=== PATIENT | female | born 1990 | race Caucasian/White ===

== ENCOUNTER 2021-04-30 12:25 | Emergency (ER) | payer SELFPAY ==
--- OUTSIDE RECORDS SUMMARY | 2021-04-30 12:30 | XMS REPORT | Continuity of Care Document ---
:1990 Author Organization [facility] Address [address] [place] [address] [address] [place] [address] Care Team Providers Name Role Phone MARILYNN GERBER Attending Clinician Unavailable Bonnie SNOWDEN Attending Clinician Unavailable Christa BLANDON Attending Clinician Unavailable ANNEMARIE Attending Clinician Unavailable My SHARPE Admitting Clinician Unavailable JUAN Admitting Clinician Unavailable Payers Payer Name Policy Type Policy Number Effective Date Expiration Date S ourfatoumata BCBS [facility] - OUT [id number] 2019 [id number] 2018 00:00:00 Problems Condition Condition Condition Status Onset Resolution Last Treating Co mments Source Name Details Category Date Date Treatment Clinician Date Chest wall Chest wall Problem Active [address] [facility] (LUF/LI V/SA) Dehydratio Dehydratio Problem Active [facility] ([facility]/SA) Urinary Urinary Problem Active [facility] infectious infectious Me moria disease disease l (LUF/LI V/SA) Allergies, Adverse Reactions, Alerts Allergy Allergy Status Severity Reaction(s) Onset Inactive Treating Comm ents Source Name Type Date Date Clinician NO KNOWN Drug Active Univers ALLERGIE Class ity of S [facility] Social History Smoking Status Start Date Stop Date Source Current some day smoker [facility] ([facility]SA) Medications This patient has no known medications. Vital Signs Vital Name Observation Time Observation Value Comments Source Body Temperature 2017 14:23:[address] [facility] (LUF/ASHLEY/SA) Respiratory Rate 2017 14:23:00 20 /min [facility] (LUF/ASHLEY/SA) O2% BldC Oximetry 2017 14:23:00 98 % [facility] (LUF/ASHLEY/SA) BP Systolic 2017 14:23:00 154 mm[Hg] DEVANTE Roblero [facility] (LUF/ASHLEY/SA) BP Diastolic 2017 14:23:00 98 mm[Hg] DEVANTE Roblero [facility] (LUF/ASHLEY/SA) Height 2017 14:23:00 67 in [facility] My [facility] (LUF/ASHLEY/SA) Weight Measured 2017 14:23:00 289.02 lbs DEVANTE terry [facility] (LUF/ASHLEY/SA) BMI (Body Mass Index) 2017 14:23:00 45.3 DEVANTE [facility] (LUF/ASHLEY/SA) Body Temperature 2017-09-01 21:52:00 98.9 F [facility] (LUF/ASHLEY/SA) Respiratory Rate 2017-09-01 21:52:00 18 /min [facility] (LUF/ASHLEY/SA) O2% BldC Oximetry 2017-09-01 21:52:00 99 % [facility] (LUF/ASHLEY/SA) BP Systolic 2017-09-01 21:52:00 152 mm[Hg] DEVANTE My [facility] (LUF/ASHLEY/SA) BP Diastolic 2017-09-01 21:52:00 98 mm[Hg] DEVANTE My [facility] (LUF/ASHLEY/SA) Height 2017-09-01 21:52:00 68 in [facility] My [facility] (LUF/ASHLEY/SA) Weight Measured 2017-09-01 21:52:00 291.45 lbs DEVANTE terry [facility] (LUF/ASHLEY/SA) BMI (Body Mass Index) 2017-09-01 21:52:00 44.6 [facility] (LUF/ASHLEY/SA) Procedures This patient has no known procedures. Encounters Start End Encounter Admission Attending Care Care Encounter Source Date/Time Date/Time Type Type Clinicians Facility Department ID 2020-02-02 2020-02-02 Outpatient Roby GERBER [facility] [id number] Univers 15:00:00 15:00:00 ISAIAS [id number] [facility] 2020-02-02 2020-02-02 Outpatient R ZABRINA [facility] [id number] Univers 15:00:00 15:00:00 ISAIAS momin [facility] 2020-01-25 2020-01-25 Outpatient R ZABRINA [facility] [id number] Univers 09:30:00 09:30:00 ISAIAS momin [facility] 2020-01-21 2020-01-21 Outpatient R SP [facility] [id number] [id number] Univers 14:30:00 14:30:00 WONDIFUL [id number] ity o f [facility] 2020-01-21 2020-01-21 Outpatient R SP [facility] [id number] Univers 14:30:00 14:30:00 WONDIFUL ity o f [facility] 2019-12-30 2019-12-30 Outpatient R SP [facility] [id number] [id number] Univers 15:30:00 15:30:00 WONDIFUL [id number] ity o f [facility] 2019-12-30 2019-12-30 Outpatient R SP [facility] [id number] Univers 15:30:00 15:30:00 WONDIFUL ity o f [facility] 2019-12-14 2019-12-14 Outpatient R SP [facility] [id number] [id number] Univers 08:45:00 08:45:00 WONDIFUL ity o f [facility] 2019-12-14 2019-12-14 Outpatient R SP [facility] [id number] Univers 08:45:00 08:45:00 WONDIFUL ity o f [facility] 2019-02-17 2019-02-17 Outpatient Roby BLANDON, [facility] [id number] Univers 10:00:00 10:26:12 KELI hicksdick [facility] 2017 2017 BETTYE MCKENNA [facility] [id number] [facility] 14:15:00 18:57:00 N [facility], [facility] [address] (CHEL/RHIANNA BRUSH, V/SA) [place] [address] 2017-09-01 2017-09-02 OTHER 1 JUAN [facility] [id number] 21:24:00 01:45:00 [facility] [place], [facility] [address] (LUF/LI MOISESE, V/SA) [place] [id number] Results Test Description Test Time Test Comments Results Result Comments Source TSH (Ultra Sensitive) 2017 20:47:00 Test Item Value Reference Range Interpretation Comme nts TSH (test code = TSH) 1.860 uIU/ML 0.358-3.740 TROPONIN-I [id number] 18:02:00 Test Item Value Reference Range Interpretation Comments Troponin-I (test <0.015 ng/ml 0.000-0.034 N The 99th Pe rcentile URL code = TROP) is 0.034 ng/mL. The Joint Society of Cardiology/[facility] College of Card iology (ESC/ACC) and [facility] of Clinical Bioche alexi Standards of La boratory Practices (NACB ) recommends that the diagnosis of AM I includes the presence of clinical history suggest kimberly of Acute Coronary Syndrome (ACS) and a max imum concentration o f cardiac troponin exceed ing the 99th percentile of a normal referenc e population [upp er reference limit (URL)] on at least one oc casion during the firs t 24 hours after the clini isidro event. [id number] 18:02:00 Test Item Value Reference Range Interpretation Comments CKMB (test code = CKMB) 1.50 ng/ml 0.00-2.36 URINALYSIS WITH [id number] 17:49:00 Test Item Value Reference Range Interpretation Comments Color (test code = UCOLR) YELLOW Clarity (test code = UCLAR) CLEAR Glucose (test code = UGLUC) NEGATIVE NEGATIVE N Bilirubin (test code = UBILI) NEGATIVE NEGATIVE N Ketones (test code = UKET) NEGATIVE NEGATIVE N Specific Dixon (test code = 1.020 1.005-1.030 A USPGR) Blood (test code = UBLD) TRACE-INTACT NEGATIVE A PH (test code = UPH) 6.5 4.5-8.0 A Protein (test code = UPROT) NEGATIVE NEGATIVE N Urobilinogen (test code = U 1.0 >0.2 A UROB) Nitrite (test code = UNITR) NEGATIVE NEGATIVE N Leukocyte Esterase (test code = TRACE NEGATIVE A ULEUK) WBC (test code = WBCUR) 5-10 0-5 A RBC (test code = RBCUR) 0-5 0-5 N Epithial Cells (test code = U 10-20 0-10 A EPI) Mucous (test code = UMUC) Small None Seen A Bacteria (test code = UBACT) None Seen None Seen,Trace N TEST, Urine [id number] 17:06:00 Test Item Value Reference Range Interpretation Comments (Urine) (test code = Negative PREGU) If a specimen is collected by a nurse, then you MUST fill out the Collected and Collected By guadarrama CT HEAD W/O [id number] 15:38:03Procedure: CT HEAD W/O CONTRASTOrder date: 2017 2:45 PMOrdering Provider: BETTYE QUINNlinical Indication: syncope, headacheComparison: NoneTechnique: Using a helical scanner, sequential axial imaging of the brain wasobtained without the administration of intravenous contrast. The exam wasobtained from the skull base to vertex.This exam was performed according to the our departmental dose-optimizationprogram which includes automated exposure control, adjustment of the mA and/orkV according topatient size and/or use of iterative reconstruction techniques.Findings:Normal-appearing walton and white matter with appropriate sulcation and normalparenchymal volume.There is no midline shift or hydrocephalus.There is no acute intracranial hemorrhage or mass effect.There is no CT evidence for acute cortical infarct.The calvarium is intact. There is no fracture.There is no lytic or sclerotic lesion.The visualized paranasal sinuses and mastoid air cells are clear.IMPRESSION:1. Negative CT scan of thebrain without intravenous contrast administration.This final report was electronically signed by Dr Thi Serrano MD 09/30/20173:31 PMDictated By: THI SERRANODate: 2017 15:38D-DIMER QUANTITATIVE 2017 15:32:00 Test Item Value Reference Range Interpretation Comments D DIMER (test 0.46 mg/L FEU 0.19-0.50 METHOD CHANGE : code = D DIM) 05/13/2012 Due to the discontinued me hodology currently in us e, a change in the t esting method is brenda sloan. The Reference R joseaide will change dramatically, a nd results are obt ained by the observance of clotting activa tion mesured on the Sysmex instruments. T his same methodology is currently in use for PT/I NR , PTT, AND HEPARIN bia ting in our Labs. The D-Dimer assay is an aid in the evaluation of thromboembolic events, as in DIC, DVT, Pulmonary Embol ism, and other thromboem bolic diseases, and s hould not be used without other diagnostic sma ures, to properly diagno se and treat thromboem bolic disease. REFER ENCE RANGE: 0.19 - 0.50 mg/L FEU (Fibrinogen Equivalent Unit s) Cut-Off Value i s: > .50 mg/L FEU Note: Results greater than (> ) the Cut-Off are to be considered POSI TIVE, and significant in the evaluation of thromboembolic diseases. Results less t talavera (<) the Cut-Off ar e to be considered NEGA TIVE, and a low probabili ty of thromboembolic disease. [id number] 15:23:00 Test Item Value Reference Range Interpretation Comments Glucose (test code 112 mg/dl 75-110 H = GLU) BUN (test code = 15.0 mg/dl 6.0-17.0 BUN) Creatinine (test 1.0 mg/dl 0.4-1.2 code = CREA) Sodium (test code = 143 mmol/l 137-145 NA) Potassium (test 3.8 mmol/l 3.5-5.0 code = K) Chloride (test code 106 mmol/l 98-107 = CL) CO2 (test code = 28 mmol/l 22-30 CO2) Calcium (test code 9.8 mg/dl 8.4-10.2 = CALC) T Protein (test 8.1 gm/dl 5.1-8.7 code = TP) Albumin (test code 4.6 gm/dl 3.5-4.6 = ALB) A/G Ratio (test 1.3 % 1.1-2.2 code = AGRAT) AST (SGOT) (test 32 U/L 11-36 code = AST) ALT (SGPT) (test 49 U/L 11-40 H code = ALT) Alkaline Phos (test 53 U/L 47-114 code = ALKP) Total Bilirubin 0.6 mg/dl 0.2-1.2 (test code = TBIL) Globulin (test code 3.5 gm/dl 2.3-3.5 = GLOBU) Calcium, Corrected 9.3 mg/dl 8.4-10.2 Various f ormulas exist (test code = for corrected s tita CALCCORR) calcium results , each yielding differ ent values. This corrected resul t was based on the fo rmula: Corrected Calci um = SerumCalcium + [0.8 * ( 4 - SerumAlbu min)] EGFR if >[address] [facility] [place] (test code mL/min/1.73m\\ = EGFRAA) S\\2 EGFR if Non- >[address] [facility] [place] (test code mL/min/1.73m\\ Filtrat ion Rate (eGFR) = EGFRNA) S\\2 Reference Inter vals Decision Points for 18 years and older and average body ma ss: >= 60 Does not exc lude kidney disease. 30 - 59 Suggests modera te chronic kidney disease and indicat es the need for furthe r investigation including asses sment of proteinuria and cardiovascular factors. < 30 Usually in dicates a need for refe rral for assessment and management of c hronic kidney failure. LIPASE, [id number] 15:23:00 Test Item Value Reference Range Interpretation Comments Lipase (test code = LIPA) 99 U/L 8-223 [id number] 15:23:00 Test Item Value Reference Range Interpretation Comments Magnesium (test code = MG) 1.8 mg/dl 1.6-2.3 [id number] 15:20:00 Test Item Value Reference Range Interpretation Comments CPK (test code = CPK) 180 U/L 30-135 H CBC WITH AUTO [id number] 15:04:00 Test Item Value Reference Range Interpretation Comments WBC (test code = 7.80 10\\S\\3/ul 4.80-10.80 WBC) RBC (test code = 5.18 10\\S\\6/ul 4.20-5.40 RBC) Hemoglobin (test 15.2 gm/dl 12.0-14.0 H code = HGB) Hematocrit (test 46.0 % 37.0-47.0 code = HCT) MCV (test code = 88.8 fL 81.0-99.0 MCV) MCH (test code = 29.3 pg 27.0-31.0 MCH) MCHC (test code = 33.0 gm/dl 33.0-37.0 MCHC) RDW (test code = 12.4 % 11.5-14.5 RDWVC) Platelet (test code 363 10\\S\\3/ul 130-400 = PLT) MPV (test code = 10.3 fL 7.4-10.4 A "NOT MEASUR ED" MPV) RESULTS ARE DIS PLAYED WHEN THE INSTRU MENT HAS A SUPPRESSE D OR UNREPORTABLE RE SULT. THIS WILL MOST OFTEN HAPPEN WITH THE MPV WHEN THERE IS A N ABNORMAL PLATEL ET DISTRIBUTION DU E TO A CRITICAL LOW VA LUE OR PLATELET CLUMPI NG. THE RDW MAY BE SUPPRESSED IF T HERE ARE MULTIPLE PE AKS PRESENT ON THE RBC HISTOGRAM. IN THIS CASE, A MANUAL REVIEW OF THE SLIDE WI LL BE PERFORMED, AND RBC MORPHOLOGY WILL BE NOTED ON THE RE PORT. NE% (test code = 68.0 % 42.0-75.0 NE) LY% (test code = 23.1 % 13.0-42.0 LY) MO% (test code = 7.2 % 4.0-14.0 MO) EO% (test code = 0.6 % 1.0-3.0 L EO) BA% (test code = 0.8 % 1.0-3.0 L BA) IG% (test code = 0.3 % 0.0-0.4 IG%) AUTO DIFFXR CHEST AP/PA 1 [id number] 10:09:29Procedure: AP View ChestOrder date: 09/02/2017 12:16 AMOrdering Provider: ABY Verainical Indication: cp, Chest painComparison: NoneFindings:Cardiomediastinal silhouette is within normal limits.The lungs are clear. No large pleural effusions or pneumothorax. Osseousstructures are nonacute.No evidence of active tuberculosis.Impression:No acute cardiopulmonary process.This final report was electronically signed by Dr Thi Serrano MD 09/02/201710:03 AMDictated By: THI SERRANODate: 09/02 10:09
[2021-04-30] MEDS ORDERED: NA CHLORIDE 0.9% 1,000 ML ONE (13:22)
[2021-04-30 13:35] LABS: Absolute Lymphocytes (CBC) 1.5 K/uL (0.7-4.9); Hematocrit 41.3 % (36.0-45.0); Lymphocytes % 16.4 % (15.3-44.8); MPV 8.5 fL (7.6-11.3); RBC Red Blood Cell Count 4.66 M/uL (3.86-4.86)
[2021-04-30 13:50] LABS: Potassium 3.6 mmol/L (3.5-5.1)
--- NOTE | 2021-04-30 14:38 | RAD REPORT ---
EXAM DESCRIPTION: US - Pelvis Complete - 04/30/2021 2:15 pm CLINICAL HISTORY: recent COMPARISON: No comparisons TECHNIQUE: Transabdominal pelvic sonography was performed. FINDINGS: Endometrial stripe is maximum 13 mm and slightly heterogeneous. No retained products of co nception identifiable. No abnormal blood or fluid in the endometrial cavity. Normal size uterus shows no myometrial mass lesion. Both ovaries are identified and normal size. No ovarian or adnexal mass or abnormal fluid collection. No blood or fluid in the cul-de-sac. IMPRESSION: No retained products of conception seen in the cervical canal. No focal or significant e ndometrial finding identifiable. No ovarian or adnexal abnormality.
[2021-04-30 15:16] LABS: Urine Blood 3+ (Negative); Urine Glucose Negative (Negative); Urine Protein Negative (Negative); Urine pH 5.5 (5.0-7.0)
--- NOTE | 2021-04-30 15:39 | ER ---
Nurse's Notes [facility] Name: Eliana Villa Age: 30 yrs Sex: Female : 1990 Arrival Date: 04/30/2021 Time: 12:27 Bed 24 Private MD: Campos Carter S Diagnosis: Other specified abnormal uterine and vaginal bleeding;UTI/ Urinary tract infection, site not specified Presentation: 04/30 12:35 Chief complaint: Patient states: "I am having a lot of vaginal bleeding with clots and jd3 it is not my cycle. slight discomfort, but I feel real weak as a result.". Coronavirus screen: At this time, the client does not indicate any symptoms associated with coronavirus-19. Ebola Screen: Patient negative for fever greater than or equal to 101.5 degrees Fahrenheit, and additional compatible Ebola Virus Disease symptoms. Initial Sepsis Screen: Does the patient meet any 2 criteria? No. Patient's initial sepsis screen is negative. Does the patient have a suspected source of infection? No. Patient's initial sepsis screen is negative. Risk Assessment: Do you want to hurt yourself or someone else? Patient reports no desire to harm self or others. Onset of symptoms was April 30, 2021. 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 Flu vaccine is not up to date. - Social history:: Smoking status: Patient reports the use of cigarette tobacco products, smokes one-half pack cigarettes per day. Screenin:31 Abuse screen: Denies threats or abuse. Nutritional screening: No deficits noted. jh6 Tuberculosis screening: No symptoms or risk factors identified. Fall Risk None identified. Assessment: 13:30 General: Appears in no apparent distress. comfortable, obese, well groomed, well jh6 developed, Behavior is calm, cooperative. Pain: Complains of pain in suprapubic area and left lower quadrant. : Reports vaginal bleeding that is bright red, moderate flow. 14:36 Reassessment: No changes from previously documented assessment. Patient and/or family jh6 updated on plan of care and expected duration. Pain level reassessed. Patient is alert, oriented x 3, equal unlabored respirations, skin warm/dry/pink. Patient denies pain at this time. Patient states feeling better. has juan through one pad while in er. . Vital Signs: 12:37 BP 141 / 87; Pulse 99; Resp 18 S; Temp 98.2(TE); Pulse Ox 99% on R/A; Weight 90.72 kg jd3 (R); Height 5 ft. 7 in. (170.18 cm) (R); Pain 6/10; 12:37 Body Mass Index 31.32 (90.72 kg, 170.18 cm) jd3 ED Course: 12:27 Patient arrived in ED. mr 12:28 Campos Carter MD is Private Physician. mr 12:36 Triage completed. jd3 12:37 Arm band placed on. jd3 12:39 Primitivo Becerril PA is PHCP. jmm 12:39 Blayne Shien MD is Attending Physician. jmm 12:50 Carmen Sheldon RN is Primary Nurse. jh6 13:30 Inserted saline lock: 20 gauge in right hand, using aseptic technique. Blood collected. jh6 13:31 Placed in gown. Bed in low position. Call light in reach. jh6 14:15 Pelvis Complete In Process Unspecified. EDMS 15:00 Assist provider with pelvic exam: Set up pelvic tray. Performed by Primitivo OWENS jh6 minimal bleeding noted by provider, cervic noted to be open. 15:38 Guzman Suazo MD is Referral Physician. [facility] 15:52 IV discontinued, intact, bleeding controlled, No redness/swelling at site. Pressure jh6 dressing applied. Administered Medications: 13:28 Drug: NS 0.9% 1000 ml Route: IV; Rate: 1 bolus; Site: right hand; 6 Outcome: 15:39 Discharge ordered by MD. [facility] 15:53 Discharged to home ambulatory. [facility] 15:53 Condition: good 15:53 Discharge instructions given to patient, Instructed on discharge instructions, Demonstrated understanding of instructions, follow-up care, medications, Prescriptions given X 1. 15:53 Patient left the ED. jh6 Signatures: Dispatcher [employer] EDPrimitivo Mahoney PA PA jmm Rivera, Mary mr Rico, Melquiades RN RN jd3 Pito, KENIA Morales RN jh6
--- NOTE | 2021-04-30 15:40 | EDPHYS ---
Physician Documentation [facility] Name: Eliana Villa Age: 30 yrs Sex: Female : 1990 Arrival Date: 04/30/2021 Time: 12:27 Bed 24 Private MD: Campos Carter S ED Physician Blayne Shine HPI: 04/30 12:43 This 30 yrs old Female presents to ER via Wheelchair with complaints of Vaginal jmm Bleeding, Near Syncope. 12:43 The patient presents with vaginal bleeding that is. Onset: The symptoms/episode jmm began/occurred acutely, this morning. Modifying factors: The symptoms are alleviated by nothing, the symptoms are aggravated by movement. Associated signs and symptoms: Pertinent positives: cramping. This is a 30-year-old female presents emerged department after an episode of heavy bleeding with clotting. Patient states this occurred after heavy lifting at work. Patient states that she nearly passed out. Patient is approximately 2 weeks status post which occurred at approximately 8 weeks IUP.. 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 Flu vaccine is not up to date. - Social history:: Smoking status: Patient reports the use of cigarette tobacco products, smokes one-half pack cigarettes per day. ROS: 12:43 Constitutional: Negative for fever, chills, and weight loss, Cardiovascular: Negative jmm for chest pain, palpitations, and edema, Respiratory: Negative for shortness of breath, cough, wheezing, and pleuritic chest pain. 12:43 : Positive for vaginal bleeding. 12:43 All other systems are negative. Exam: 12:43 Constitutional: This is a well developed, well nourished patient who is awake, alert, jmm and in no acute distress. Head/Face: atraumatic. Eyes: EOMI, no conjunctival erythema appreciated ENT: Moist Mucus Membranes Neck: Trachea midline, Supple Chest/axilla: Normal chest wall appearance and motion. Cardiovascular: Regular rate and rhythm. No edema appreciated Respiratory: Normal respirations, no respiratory distress appreciated Abdomen/GI: Non distended, soft Back: Normal ROM 12:43 Skin: General appearance color normal MS/ Extremity: Moves all extremities, no obvious deformities appreciated, no edema noted to the lower extremities Neuro: Awake and alert Psych: Behavior is normal, Mood is normal, Patient is cooperative and pleasant 12:43 : Pelvic Exam: Speculum exam: mild bleeding, os that is closed. Vital Signs: 12:37 BP 141 / 87; Pulse 99; Resp 18 S; Temp 98.2(TE); Pulse Ox 99% on R/A; Weight 90.72 kg jd3 (R); Height 5 ft. 7 in. (170.18 cm) (R); Pain 6/10; 12:37 Body Mass Index 31.32 (90.72 kg, 170.18 cm) jd3 MDM: 12:57 Patient medically screened. [facility] 15:36 Data reviewed: vital signs, nurses notes. Counseling: I had a detailed discussion with mimi the patient and/or guardian regarding: the historical points, exam findings, and any diagnostic results supporting the discharge/admit diagnosis, lab results, radiology results, the need for outpatient follow up, to return to the emergency department if symptoms worsen or persist or if there are any questions or concerns that arise at home. ED course: Patient is alert and non toxic in appearance in the ED. H/H normal. VS wnl. Patient advised to follow up with obgyn and otherwise given strict return precautions. Patient understood and agrees with the plan of care. . 04/30 12:43 Order name: Abo/rh Typing; Complete Time: 13:48 [facility] 04/30 12:43 Order name: Basic Metabolic Panel; Complete Time: 13:51 [facility] 04/30 12:43 Order name: CBC with Diff; Complete Time: 13:40 [facility] 04/30 13:51 Order name: US Pelvis Complete; Complete Time: 14:39 [facility] 04/30 15:16 Order name: Urine Dipstick-Ancillary; Complete Time: 15:20 [facility] 04/30 12:43 Order name: IV Saline Lock; Complete Time: 13:28 [facility] 04/30 12:43 Order name: Labs collected and sent; Complete Time: 13:28 [facility] 04/30 12:43 Order name: NPO; Complete Time: 13:28 [facility] 04/30 12:43 Order name: Urine Dipstick-Ancillary (obtain specimen) [facility] Administered Medications: 13:28 Drug: NS 0.9% 1000 ml Route: IV; Rate: 1 bolus; Site: right hand; [facility] Disposition: 19:03 Co-signature as Attending Physician, Blayne Shine MD I agree with the assessment and kdr plan of care. Disposition Summary: 04/30/21 15:39 Discharge Ordered Location: Home [facility] Condition: Stable [facility] Diagnosis - Other specified abnormal uterine and vaginal bleeding [facility] - UTI/ Urinary tract infection, site not specified [facility] Followup: [facility] - With: Guzman Suazo MD - When: 2 - 3 days - Reason: Recheck today's complaints, Continuance of care, Re-evaluation by your physician Discharge Instructions: - Discharge Summary Sheet [facility] - Abnormal Uterine Bleeding [facility] - Urinary Tract Infection, Adult [facility] Forms: - Medication Reconciliation Form [facility] - Thank You Letter [facility] - Antibiotic Education [facility] - Prescription Opioid Use [facility] Prescriptions: - Cephalexin 500 mg Oral Capsule - take 1 capsule by ORAL route every 8 hours for 10 days; 30 capsule; Refills: 0, [facility] Product Selection Permitted Signatures: Dispatcher [employer] EDMS Blayne Shine MD MD kdr Mickail, Joel, PA PA jmm Davies, Jonathon, RN RN [id number] Carmen Sheldon RN RN [id number]
[2021-04-30 23:24] VITALS: BP 141/87; TEMP 98.2; O2SAT 99
== END 2021-04-30 15:53 | disposition home or self-care (01) ==
LOC: ER 12:25
DX: N39.0 Urinary tract infection, site not specified (principal); F17.210 Nicotine dependence, cigarettes, uncomplicated
CPT/HCPCS: 36415; 76856; 80048; 81003; 85025; 86900; 86901; 99284; J7030